=== PATIENT | male | born 1940 | race Caucasian/White ===

== ENCOUNTER 2016-12-03 08:49 | Emergency (ER) | payer MEDICARE, BC ==
[2016-12-03 09:43] LABS: BASOPHILS 0.6 % (0.0-2.0); EOSINOPHILS 0.9 % (0.0-6.0); EOSINOPHILS# 0.1 X 10^3uL (0.0-0.4); HEMATOCRIT 44.5 % (42.0-54.0); HEMOGLOBIN 15.2 g/dL (14.0-18.0); LYMPHOCYTES 22.9 % (20.0-40.0); LYMPHOCYTES# 1.6 X 10^3uL (0.8-3.8); MEAN CELL VOLUME 91.4 fL (80.0-100.0); MEAN CORPUS. HGB CONCENTRATION 34.2 g/dL (32.0-36.0); MEAN CORPUSCULAR HEMOGLOBIN 31.3 pg (29.0-35.0); MEAN PLATELET VOLUME 8.7 fL (7.4-10.4); MONOCYTES 6.6 % (2.0-10.0); MONOCYTES# 0.5 X 10^3uL (0.2-1.0); NEUTROPHILS# 4.7 X 10^3uL (2.6-6.7); PLATELET COUNT 207 X 10^3uL (130-440); RED BLOOD COUNT 4.87 X 10^6uL (4.20-6.10); RED CELL DISTRIBUTION WIDTH 13.7 % (11.5-14.5); WHITE BLOOD COUNT 6.9 X 10^3uL (3.9-10.7)
[2016-12-03 09:54] LABS: BLOOD UREA NITROGEN 24 mg/dL (9-20); CALCIUM 9.5 mg/dL (8.4-10.2); CHLORIDE 104 mmol/L (98-107); CREATININE 1.2 mg/dL (0.7-1.3); EST GLOMERULAR FILTRATION RATE > 60 mL/min; GLUCOSE 142 mg/dL (70-100); INR 1.2; POTASSIUM 4.4 mmol/L (3.5-5.1); SODIUM 144 mmol/L (137-145)
[2016-12-03 10:06] LABS: TROPONIN I 0.016 ng/mL (0.00-0.034)
--- NOTE | 2016-12-03 10:59 | ER NURSING DOCUMENTATION ---
Nurse's Notes [facility] Name:Anibal Hinson Age:76 yrs Sex:Male :1940 Arrival Date:12/03/2016 Time:08:49 Bed4 Private MD: Diagnosis:CHF (Congestive Heart Failure);Premature Ventricular Contractions (PVC) Presentation: 12/03 09:01 Acuity: TIM 3 [facility] [place] 09:02 Presenting complaint: Patient states: shortness of breath. Here for a wedding from [address] having arrived yesterday. Transition of care: patient was not received from another setting of care. Notified ED Physician of patient's arrival and CC Dr. Bacon notified. 09:02 Method Of Arrival: [place] Vehicle [facility] [place] Triage Assessment: 09:46 General: Appears in no apparent distress, well developed, well nourished, well groomed, [facility] Behavior is cooperative, pleasant. Pain: Denies pain. Respiratory: Reports shortness of breath on exertion and when he lies down Onset: The symptoms/episode began/occurred yesterday, the patient has moderate shortness of breath. Historical: - Home Meds: 1. Metoprolol Tartrate Oral 2. Simvastatin Oral 3. tamsulosin oral 4. losartan oral - PMHx: [place]; Coronary stent x1; - PSHx: knee replacement; - Ebola Screening: : Patient negative for fever greater than or equal to 101.5 degrees Fahrenheit, and additional compatible Ebola Virus Disease symptoms. Patient denies exposure to infectious person. Patient denies travel to an Ebola-affected area in the 21 days before illness onset. No symptoms or risks identified at this time. . - Immunization history: Pneumococcal vaccine is up to date, Flu Vaccine < 1 year. - Social history: Smoking status: Patient states former smoker of tobacco. Patient/guardian denies using alcohol, street drugs, IV drugs, marijuana. Screenin:47 Infectious Disease Risk None. Abuse screen: Denies threats or abuse. Nutritional md1 screening: No deficits noted. Assessment: 10:57 Cardiovascular: Rhythm is irregular. Respiratory: Airway is patent Respiratory effort sc1 is even, unlabored, Breath sounds are clear bilaterally. Vital Signs: 08:53 BP 162 / 108 (auto/); sc1 09:00 Pulse 80 MON; Resp 32; sc1 09:31 BP 167 / 85 (auto/); sc1 09:40 Pulse 87 MON; Resp 17; Pulse Ox 91% ; md1 10:30 BP 149 / 84 (auto/); md1 10:40 Pulse 90 MON; Resp 26; Pulse Ox 92% ; md1 10:40 Temp 98.4(O); md1 ED Course: 08:50 Patient arrived in ED. ama 08:56 Yony Bacon MD is Attending Physician. md 09:01 Becky Heath RN is Primary Nurse. [facility] 09:01 Triage completed. [facility] 09:46 Notified ED Physician of patient's arrival and chief complaint. Dr. Bacon notified. [facility] 09:46 EKG done per protocol. Labs ordered per protocol. X-ray ordered. [facility] 09:47 Inserted saline lock: 20 gauge in left antecubital area and blood collected. Oxygen md1 Oxygen administration via nasal cannula @ 2L/min. 09:47 Valuables Remains with patient. monitoring tech on. Pulse ox on. NIBP on. [facility] 09:55 EKG attached [facility] 10:55 Discontinued lock intact, bleeding controlled, pressure dressing applied, No sc1 redness/swelling at site. Administered Medications: No medications were administered Outcome: 10:49 Discharge ordered by . md 10:56 Discharged to home ambulatory. [facility] 10:56 Condition: improved 10:56 Discharge instructions given to patient, Instructed on discharge instructions, follow up and referral plans. medication usage, Demonstrated understanding of instructions, medications. 10:58 Patient left the ED. [facility] Signatures: Becky Heath RN RN [facility] Yony Bacon MD MD md Maureen Arreola ms, Andrew, Reg Reg ama
--- NOTE | 2016-12-03 10:59 | ER PHYSICIAN DOCUMENTATION ---
Physician Documentation [facility] Name:Anibal Hinson Age:76 yrs Sex:Male :1940 Arrival Date:12/03/2016 Time:08:49 Bed4 Private MD: Yony Hoover Disposition: 12/03 10:39 Critical Care: not applicable. sc Disposition: 12/03/16 10:49 Discharged to Home/Self Care. Impression: CHF (Congestive Heart Failure), Premature Ventricular Contractions (PVC). - Condition is Good. - Discharge Instructions: CHF, General, PAT (P.A.T.). - Medical Reconciliation form form. - Follow up: Private Physician; When: 2 - 3 days; Reason: Recheck today's complaints, Continuance of care. - Problem is new. - Symptoms have improved. HPI: 10:50 This 76 yrs old Male presents to ER via Private Vehicle with complaints of sc Breathing Difficulty. 10:50 The patient has shortness of breath with coming to altitude and missing meds, [place] med[place] sc at airport, feeling more frequent PVCs which has been a problem for 5 years. Onset: The symptom(s)/episode began/occurred last night. Duration: The symptoms are intermittent. The patient's shortness of breath is aggravated by supine position. Associated signs and symptoms: Pertinent positives: palpitations. Severity of symptoms: At their worst the symptoms were very mild mild. The patient has experienced similar episodes in the past, a few times. Historical: - Home Meds: 1. Metoprolol Tartrate Oral 2. Simvastatin Oral 3. tamsulosin oral 4. losartan oral - PMHx: [place]; Coronary stent x1; - PSHx: knee replacement; - Ebola Screening: : Patient negative for fever greater than or equal to 101.5 degrees Fahrenheit, and additional compatible Ebola Virus Disease symptoms. Patient denies exposure to infectious person. Patient denies travel to an Ebola-affected area in the 21 days before illness onset. No symptoms or risks identified at this time. . - Immunization history: Pneumococcal vaccine is up to date, Flu Vaccine < 1 year. - Social history: Smoking status: Patient states former smoker of tobacco. Patient/guardian denies using alcohol, street drugs, IV drugs, marijuana. ROS: 10:54 Constitutional: Negative for fever, chills, and weight loss. sc Eyes: Negative for injury, pain, redness, and discharge. ENT: Negative for injury, pain, and discharge. Neck: Negative for injury, pain, and swelling. Abdomen/GI: Negative for abdominal pain, nausea, vomiting, diarrhea, and constipation. Back: Negative for injury and pain. Skin: Negative for injury, rash, and discoloration. 10:54 Neuro: Negative for headache, weakness, numbness, tingling, and seizure. sc 10:54 Cardiovascular: Positive for palpitations. 10:54 Respiratory: Positive for shortness of breath. Exam: Constitutional: This is a well developed, well nourished patient who is awake, alert, and in no acute distress. Head/Face: Normocephalic, atraumatic. Eyes: Pupils equal round and reactive to light, extra-ocular motions intact. Lids and lashes normal. Conjunctiva and sclera are non-icteric and not injected. Cornea within normal limits. Periorbital areas with no swelling, redness, or edema. Chest/axilla: Normal chest wall appearance and motion. Nontender with no deformity. No lesions are appreciated. Abdomen/GI: Soft, non-tender, with normal bowel sounds. No distension or tympany. No guarding or rebound. No evidence of tenderness throughout. Back: No spinal tenderness. No costovertebral tenderness. Full range of motion. Skin: Warm, dry with normal turgor. Normal color with no rashes, no lesions, and no evidence of cellulitis. MS/ Extremity: Pulses equal, no cyanosis. Neurovascular intact. Full, normal range of motion, negative Homans's, calves equal bilaterally. 10:54 Neuro: Awake and alert, GCS 15, oriented to person, place, time, and situation. sc Cranial nerves II-XII grossly intact. Motor strength 5/5 in all extremities. Sensory grossly intact. Cerebellar exam normal. Normal gait. 10:54 Cardiovascular: Rate: normal, Rhythm: irregular, Pulses: Pulses are 2+ in right radial artery and left radial artery. 10:54 Respiratory: the patient does not display signs of respiratory distress, Respirations: normal, Breath sounds: are normal, clear throughout. Vital Signs: 08:53 BP 162 / 108 (auto/); sc1 09:00 Pulse 80 MON; Resp 32; sc1 09:31 BP 167 / 85 (auto/); ne1 09:40 Pulse 87 MON; Resp 17; Pulse Ox 91% ; ne1 10:30 BP 149 / 84 (auto/); ne1 10:40 Pulse 90 MON; Resp 26; Pulse Ox 92% ; ne1 10:40 Temp 98.4(O); ne1 MDM: 08:56 Patient medically screened. ne 09:55 EKG [place] [facility] [place] 10:56 Differential diagnosis: CHF exacerbation, Chronic Obstructive Pulmonary Disease sc Myocardial Infarction Psychogenic pulmonary edema, Pulmonary Embolism. Antibiotic administration: Not indicated. Data reviewed: vital signs, nurses notes, and as a result, I will discharge patient. Data interpreted: Pulse oximetry: on room air is 93 %. Counseling: I had a detailed discussion with the patient and/or guardian regarding: the historical points, exam findings, and any diagnostic results supporting the discharge/admit diagnosis, lab results, radiology results, the need for outpatient follow up, to return to the emergency department if symptoms worsen or persist or if there are any questions or concerns that arise at home. 12/03 09:45 Order name: CBC AUTO DIF, MDIF/RMOR IF IND; Complete Time: 10:24 EDMS 12/03 10:23 Interpretation: Normal: Normal. ne 12/03 10:03 Order name: BASIC METABOLIC PANEL; Complete Time: 10:24 EDMS 12/03 10:23 Interpretation: Normal: Normal. ne 12/03 10:10 Order name: BNP,NT-PRO; Complete Time: 10:24 EDMS 12/03 10:23 Interpretation: Abnormal: Abnormal. ne 12/03 10:10 Order name: TROPONIN I; Complete Time: 10:24 EDMS 12/03 10:23 Interpretation: Normal: Normal. ne 12/03 10:10 Order name: PROTIME/INR EDPA 12/03 10:16 Interpretation: Normal. ne 12/03 10:15 Order name: DIGOXIN; Complete Time: 10:24 EDMS 12/03 10:23 Interpretation: Abnormal: DIGOXIN 0.5. ne 12/03 10:16 Order name: DDIMER; Complete Time: 10:22 EDMS 12/03 10:23 Interpretation: Normal Except: DDIMER 378; minimal elevation for age, PT subtherapeutic ne and will no pain with inspiration, no hypoxia, no calf tenderness, neg Homans. 12/03 11:20 Order name: CHEST; SINGLE VIEW [id number] EDPA 12/03 09:26 Order name: 12-lead EKG; Complete Time: 09:45 ne 12/03 09:26 Order name: Continuous Cardiac Monitoring; Complete Time: :37 ne 12/03 09:26 Order name: I & O; Complete Time: :37 ne 12/03 09:26 Order name: Iv Saline Lock; Complete Time: :37 ne 12/03 09:26 Order name: Oxygen; Complete Time: :37 ne 12/03 09:26 Order name: Pulse Ox Continuous; Complete Time: :37 ne Dispensed Medications: No medications were administered Signatures: Becky Heath RN RN sc1 Yony Bacon MD MD ne
--- NOTE | 2016-12-03 11:18 | RADIOLOGY REPORT ---
HISTORY: COMPARISON: None. FINDINGS: 1 view of the chest obtained. Cardiomediastinal silhouette is enlarged. This is predominately due to marked atherosclerotic ectasia of the thoracic aorta. The ascending and descending aorta, including the aortic arch are tortuous an d elongated. There is slight deviation of the trachea to the right due to the ectasia the aorta. The heart itself is not enlarged. Pulmonary vascularity is within normal limits. Lungs are hypoventilated. No confluent infiltrate or consolidation. There is a 5 mm granuloma in the right base. No pneumothorax or pleural effusion. IMPRESSION: 1. Atherosclerotic ectasia of the thoracic aorta. 2. No acute infiltrate. 3. 5 mm right basilar granuloma. Final Electronic Signature: This report was electronically signed by Juan Amador MD on 12/03/2016 11: 16 AM. [facility] /
== END 2016-12-03 10:59 | disposition home or self-care (01) ==
LOC: ER 08:49
DX: I50.20 Unspecified systolic (congestive) heart failure (principal); I49.3 Ventricular premature depolarization; R06.02 Shortness of breath; R79.1 Abnormal coagulation profile; I25.2 Old myocardial infarction; Z95.5 Presence of coronary angioplasty implant and graft; Z79.899 Other long term (current) drug therapy
CPT/HCPCS: 71010; 80048; 80162; 83880; 84484; 85025; 85379; 85610; 93010; 99285